=== PATIENT | female | born 1980 | race Two or more races ===

== ENCOUNTER 2025-01-27 10:49 | Emergency (ER) | payer MEDICAID, SELFPAY ==
[2025-01-27 17:03] LABS: HCG Qualitative,Urine Negative
== END 2025-01-27 12:35 | disposition home or self-care (01) ==
PROVIDERS: Emergency Provider Emergency Medicine; PCP Emergency Medicine
DX: Z32.02 Encounter for pregnancy test, result negative (principal)
CPT/HCPCS: 81025; 99283

== ENCOUNTER → 2025-03-27 | Outpatient (CLI) | payer MEDICAID, SELFPAY ==
--- NOTE | 2025-03-27 09:00 | XR_ITS ---
Examination: Screening digital mammography, bilateral Computer aided detection 3-D breast Tomosynthesis, bilateral Date and time of exam: March 27, 2025 0859 hours Compared to mammograms dating to August 14, 2019 Indication: Screening Technique: Nonmagnified MLO, CC views of the breasts to been obtained, reconstructed from 3-D Tomosynthesis images. R2 computer aided detection program utilized for evaluation of suspicious masses and/or abnormal calcifications. 3-D Tomosynthesis images obtained. Findings: The breasts are heterogeneously dense, which may obscure small masses More nodular density associated with the breast biopsy marker 12:00 position right breast, measuring 10 mm Impression: BI-RADS Category 0: Incomplete: Need additional imaging evaluation Recommend follow-up spot tomographic views at the breast biopsy marker site as well as right breast sonography to complete the workup
== END | disposition home or self-care (01) ==
PROVIDERS: PCP Obstetrics & Gynecology; Referring Provider Obstetrics & Gynecology; Visit Provider Obstetrics & Gynecology
DX: Z12.31 Encounter for screening mammogram for malignant neoplasm of breast (principal); R92.333 Mammographic heterogeneous density, bilateral breasts
CPT/HCPCS: 77063; 77067

== ENCOUNTER → 2025-08-21 | Outpatient (CLI) | payer MEDICAID, SELFPAY ==
--- NOTE | 2025-08-21 10:15 | XR_ITS ---
Examination: Breast ultrasound, unilateral, right Date and time of exam: August 21, 2025, 1033 hours INDICATIONS: Mammogram March 27, 2025 nodular density with breast biopsy marker 12 o'clock position right breast measuring 10 mm, right breast tenderness 3 years Technique: Real-time jasso scale ultrasonographic imaging performed right breast including all 4 quadrants as well as nipple retroareolar and axillary region. Findings: 2:00 cyst 4 x 4 mm 1:00 cyst 4 x 4 mm 9:00 cyst 6 x 6 mm Retroareolar cyst 4 x 5 mm Smaller cysts No solid nodules IMPRESSION: BI-RADS Category 2: Benign finding
--- NOTE | 2025-08-21 10:45 | XR_ITS ---
Examination: Diagnostic digital mammography, unilateral, right Computer aided detection 3-D breast Tomosynthesis, unilateral Date and time of exam: 08/21/2025, 10:47 a.m. Comparisons: July 2022 through March 2025 Indications: Abnormality seen near the 12 o'clock position, near post biopsy marker Technique: Nonmagnified MLO, CC views of the right breast have been obtained, reconstructed from 3-D Tomosynthesis images. R2 computer aided detection program utilized for evaluation of suspicious masses and/or abnormal calcifications. 3-D Tomosynthesis images obtained. Technologist: Findings: There are scattered areas of fibroglandular density. Focal asymmetry persists at the 12 o'clock position near the post biopsy marker clip and corresponds to benign simple cyst seen on today's ultrasound exam. Otherwise, no evidence of abnormal masses or suspicious calcifications. Impression: BI-RADS category 2: Benign findings Recommend 1 year follow-up mammogram
== END | disposition home or self-care (01) ==
PROVIDERS: PCP Physician Assistant; Referring Provider Obstetrics & Gynecology; Visit Provider Obstetrics & Gynecology
DX: R92.321 Mammographic fibroglandular density, right breast (principal)
CPT/HCPCS: 76641; 77061; 77065; G0279